=== PATIENT | female | born 1995 | race African-American/Black ===

== ENCOUNTER 2017-05-08 23:19 | Emergency (ER) | payer OTHER ==
[~2017-05-08] VITALS: Ht 177.8 cm; Wt 99.8 kg
[2017-05-09 00:07] VITALS: BP 122/68
[2017-05-09] MEDS ORDERED: ZITHROMAX250 MG PO (01:47)
== END 2017-05-09 02:18 | disposition home or self-care (01) ==
LOC: ED 23:19
DX: J02.8 Acute pharyngitis due to other specified organisms (principal); B96.89 Other specified bacterial agents as the cause of diseases classified elsewhere; F17.200 Nicotine dependence, unspecified, uncomplicated

== ENCOUNTER 2019-04-06 11:43 | Emergency (ER) | payer BC ==
[~2019-04-06] VITALS: Ht 172.7 cm; Wt 136.1 kg
[~2019-04-06 11:43] MED LIST: ZITHROMAX250 MG PO
[2019-04-06 11:48] VITALS: BP 141/50
[2019-04-06 12:01] LABS: BILIRUBIN NEGATIVE (NEGATIVE); BLOOD NEGATIVE (NEGATIVE); CLARITY CLEAR (CLEAR); COLOR YELLOW (YELLOW); GLUCOSE NEGATIVE (NEGATIVE); KETONE NEGATIVE (NEGATIVE); LEUKO ESTERASE NEGATIVE (NEGATIVE); NITRITE NEGATIVE (NEGATIVE); UROBILINOGEN 0.2 E.U./dl (0.2-1.0)
[2019-04-06 12:10] LABS: RBC 0-2 rbc/hpf (0-2); WBC 0-2 wbc/hpf (0-5)
[2019-04-06 13:01] LABS: BASO # 0.1 10*3/uL (0.0-0.1); BASO % 1.1 % (0.0-1.0); EOS % 0.4 % (1.0-4.0); HEMATOCRIT 38.5 % (37.0-47.0); HEMOGLOBIN 12.1 g/dl (12.0-16.0); LYMPH % 21.3 % (27.0-41.0); MEAN CELL VOLUME 89.7 fl (81.0-99.0); MEAN CORPUSCULAR HGB 28.2 pg (27.0-31.0); MEAN CORPUSCULAR HGB CONC 31.4 g/dl (33.0-37.0); MEAN PLATELET VOLUME 10.1 fl (9.6-12.3); MONO # 0.3 10*3/uL (0.1-1.0); MONO % 5.3 % (3.0-9.0); NEUT # 3.4 10*3/uL (2.3-7.9); NEUT % 71.9 % (47.0-73.0); PLATELET COUNT AUTOMATED 288 10*3/uL (130-400); RED BLOOD COUNT 4.29 10*6/uL (4.10-5.10); RED CELL DISTRI WIDTH 13.6 % (0-14.5); WHITE BLOOD COUNT 4.8 10*3/uL (4.8-10.8)
[2019-04-06 13:15] LABS: ALBUMIN 3.3 gm/dl (3.1-4.5); ALKALINE PHOSPHATASE 61 U/L (45-117); BUN 13 mg/dl (7-24); CHLORIDE 110 mmol/L (98-107); CREATININE 0.76 mg/dL (0.55-1.02); LIPASE 59 U/L (73-393); POTASSIUM 3.9 mmol/L (3.5-5.1); SGOT/AST 12 IU/L (3-35); SGPT/ALT 21 U/L (12-78); SODIUM 139 mmol/L (136-145); TOTAL PROTEIN 7.2 gm/dL (6.4-8.2)
== END 2019-04-06 13:20 | disposition home or self-care (01) ==
LOC: ED 11:43
PROVIDERS: Nurse Practitioner Family
DX: R10.9 Unspecified abdominal pain (principal)

== ENCOUNTER 2019-05-30 11:35 | Inpatient (IN) | payer BC, OTHER ==
[~2019-05-30] VITALS: Ht 175.2 cm; Wt 146.5 kg
[2019-05-30 11:39] VITALS: BP 139/71
[2019-05-30 12:10] LABS: BASO % 0.3 % (0.0-1.0); EOS # 0.1 10*3/uL (0.0-0.4); EOS % 1.1 % (1.0-4.0); HEMOGLOBIN 12.5 g/dl (12.0-16.0); LYMPH # 1.7 10*3/uL (1.3-4.4); LYMPH % 19.3 % (27.0-41.0); MEAN CELL VOLUME 87.1 fl (81.0-99.0); MEAN CORPUSCULAR HGB 27.9 pg (27.0-31.0); MEAN CORPUSCULAR HGB CONC 32.1 g/dl (33.0-37.0); MEAN PLATELET VOLUME 9.9 fl (9.6-12.3); MONO # 0.7 10*3/uL (0.1-1.0); MONO % 7.4 % (3.0-9.0); NEUT # 6.4 10*3/uL (2.3-7.9); NEUT % 71.6 % (47.0-73.0); PLATELET COUNT AUTOMATED 304 10*3/uL (130-400); RED BLOOD COUNT 4.48 10*6/uL (4.10-5.10); RED CELL DISTRI WIDTH 13.6 % (0-14.5); WHITE BLOOD COUNT 8.9 10*3/uL (4.8-10.8)
[2019-05-30 12:28] LABS: ALBUMIN 3.3 gm/dl (3.1-4.5); ALKALINE PHOSPHATASE 67 U/L (45-117); BUN 7 mg/dl (7-24); CHLORIDE 108 mmol/L (98-107); CREATININE 0.73 mg/dL (0.55-1.02); LIPASE 46 U/L (73-393); POTASSIUM 3.5 mmol/L (3.5-5.1); SGOT/AST 11 IU/L (3-35); SGPT/ALT 19 U/L (12-78); SODIUM 138 mmol/L (136-145); TOTAL PROTEIN 7.5 gm/dL (6.4-8.2)
[2019-05-30 12:50] LABS: BILIRUBIN NEGATIVE (NEGATIVE); CLARITY SL CLOUDY (CLEAR); COLOR YELLOW (YELLOW); GLUCOSE NEGATIVE (NEGATIVE); KETONE NEGATIVE (NEGATIVE); SPECIFIC GRAVITY 1.015 (1.005-1.030)
[2019-05-30 12:51] LABS: BLOOD 2+ (NEGATIVE); LEUKO ESTERASE TRACE (NEGATIVE); NITRITE NEGATIVE (NEGATIVE); PH 6.5 (5.0-9.0); UROBILINOGEN 0.2 E.U./dl (0.2-1.0)
[2019-05-30 12:57] LABS: BACTERIA 2+; MUCOUS 1+
[2019-05-30 13:23] VITALS: BP 114/62
[2019-05-30 14:13] VITALS: BP 112/60
[2019-05-30 14:30] VITALS: BP 132/64
--- NOTE | 2019-05-30 14:30 | NUR ---
Time: 0 A 24 year old FEMALE admitted to 5E under services of LUDIVINA ALEXANDER DO, Pt. arrived via bed from ER. Chief complaint: RUQ ABDOMINAL PAIN. GANESH SAMPSON
[2019-05-30 16:00] VITALS: BP 132/64
--- NOTE | 2019-05-30 19:55 | NUR ---
MEDICATED WITH PRN MORPHINE FOR C/O ABD PAIN RATED 6/10 ON A 0/10 PAIN SCALE. VISITOR AT BEDSIDE. WILL MONITOR
[2019-05-30 20:00] VITALS: BP 133/67
[2019-05-31] VITALS (10 sets, daily range): BP systolic 114–148; BP diastolic 59–80
--- NOTE | 2019-05-31 03:02 | NUR ---
MEDICATED WITH PRN MORPHINE FOR C/O ABD PAIN RATED 6/10 ON A 0/10 PAIN SCALE. WILL MONITOR
[2019-05-31 06:48] LABS: BASO % 0.4 % (0.0-1.0); EOS # 0.2 10*3/uL (0.0-0.4); EOS % 2.6 % (1.0-4.0); HEMOGLOBIN 11.1 g/dl (12.0-16.0); LYMPH # 1.7 10*3/uL (1.3-4.4); LYMPH % 22.5 % (27.0-41.0); MEAN CELL VOLUME 87.5 fl (81.0-99.0); MEAN CORPUSCULAR HGB 27.8 pg (27.0-31.0); MEAN CORPUSCULAR HGB CONC 31.7 g/dl (33.0-37.0); MONO # 0.7 10*3/uL (0.1-1.0); MONO % 8.5 % (3.0-9.0); NEUT % 65.7 % (47.0-73.0); PLATELET COUNT AUTOMATED 270 10*3/uL (130-400); RED CELL DISTRI WIDTH 13.5 % (0-14.5); WHITE BLOOD COUNT 7.6 10*3/uL (4.8-10.8)
[2019-05-31 07:20] LABS: ALBUMIN 2.8 gm/dl (3.1-4.5); ALKALINE PHOSPHATASE 83 U/L (45-117); BUN 6 mg/dl (7-24); CHLORIDE 107 mmol/L (98-107); CHOLESTEROL 108 mg/dL (<200); CREATININE 0.74 mg/dL (0.55-1.02); FREE T4 1.48 ng/dl (0.76-1.46); HDL CHOLESTEROL 42 mg/dl (40-60); LDL CHOLESTEROL 57 mg/dL (9-159); POTASSIUM 3.3 mmol/L (3.5-5.1); SGOT/AST 79 IU/L (3-35); SGPT/ALT 55 U/L (12-78); SODIUM 140 mmol/L (136-145); TOTAL PROTEIN 6.6 gm/dL (6.4-8.2); TRIGLYCERIDES 43 mg/dl (<150); VLDL CHOLESTEROL 9 mg/dL (6-40)
[2019-05-31 07:42] LABS: VITAMIN D, 25-HYDROXY 11.2 ng/mL (30-100)
--- NOTE | 2019-05-31 08:10 | NUR ---
DR. GOMEZ IN ROOM TALKING WITH PT.
--- NOTE | 2019-05-31 08:30 | NUR ---
PT RESTING IN BED WITH HOB ELEVATED. RESP-EASY AND REGULAR. IVF INFUSING WITH NO PROBLEM. C/O ABD PAIN, RATES PAIN 7 ON PAIN SCALE 0-10. MEDICATED WITH MORPHINE IV PER PRN ORDER, SEE EMAR. VISITOR AT HER SIDE. CALL LIGHT IN REACH. SEE SHIFT ASSESSMENT.
--- NOTE | 2019-05-31 08:45 | NUR ---
SURGERY ON THE FLOOR TO TAKE PT VIA BED.
--- NOTE | 2019-05-31 09:00 | NUR ---
Guest Relations Agent in to see patient. She is currently in surgery. Will follow up at a later time.
--- NOTE | 2019-05-31 13:00 | NUR ---
PT RESTING IN BED WITH VISITORS AT HER SIDE. IVF INFUSING WITH NO PROBLEM. NO C/O AT THIS TIME. 4 SITES GLUED WITH NO DRAINAGE. CALL LIGHT IN REACH.
--- NOTE | 2019-05-31 15:30 | NUR ---
Environmental Test Technician in to talk to patient. Patient states lives at home with her boyfriend. There are 14 steps in the home. Physician: no family physician [facility] Home health services: none Patient's level of ADLs: INDEPENDENT Patient has working utilities: yes DME: none Follow-up physician's appointment after d/c: will be made by the hospitalist nurse director upon discharge Does patient want to access PORTAL?: no Discharge plan discussed with patient. She lives at home with her boyfriend. She is independent in her ADLs and ambulation. Discussed home health care services and she denies any home needs at this time. When medically stable she will be discharged to home. His boyfriend or her mother will provide transportation on discharge. MÓNICA SILVA
--- NOTE | 2019-05-31 16:03 | NUR ---
PT C/O ABDOMINAL PAIN, RATES PAIN 5 ON PAIN SCALE 0-10. MEDICATED WITH MORPHINE IV PER PRN ORDER, SEE EMAR. IVF INFUSING WITH NO PROBLEM. CALL LIGHT IN REACH. SEE SHIFT ASSESSMENT.
--- NOTE | 2019-05-31 17:00 | NUR ---
RESTING IN BED WITH VISITOR AT HER SIDE. MEDICATION EFFECTIVE. CALL LIGHT IN REACH.
--- NOTE | 2019-05-31 20:03 | NUR ---
PT C/O ABD PAIN, RATES PAIN 8 ON PAIN SCALE 0-10. MEDICATED WITH MORPHINE IV PER PRN ORDER, SEE EMAR. IVF INFUSING WITH NO PROBLEM. CALL LIGHT IN REACH. VISITOR AT HER SIDE.
--- NOTE | 2019-05-31 21:00 | NUR ---
PT RESTING IN BED. RESP-EASY AND REGULAR. VISITOR AT HER SIDE. MEDICATION EFFECTIVE. PT AMBULATED TO BATHROOM AND BACK TO BED. CALL LIGHT IN REACH. IV ANTIBIOTICS INFUSING WITH NO PROBLEM.
[2019-06-01] VITALS: BP 143/81
--- NOTE | 2019-06-01 | NUR ---
PATIENT MEDICATED SLOWLY WITH 2 MG IV MORPHINE PER PRN ORDER AND PATIENT REQUEST FOR C/O ABDOMINAL PAIN. RATED PAIN A 7-8/10 WITH 10 BEING THE WORST.. REINFORCED USE OF CALL LIGHT
--- NOTE | 2019-06-01 01:57 | NUR ---
24 HR chart check completed.
[2019-06-01 06:37] LABS: BASO % 0.2 % (0.0-1.0); EOS % 0.3 % (1.0-4.0); HEMATOCRIT 31.5 % (37.0-47.0); LYMPH # 1.6 10*3/uL (1.3-4.4); LYMPH % 17.7 % (27.0-41.0); MEAN CELL VOLUME 89.2 fl (81.0-99.0); MEAN CORPUSCULAR HGB 28.3 pg (27.0-31.0); MEAN CORPUSCULAR HGB CONC 31.7 g/dl (33.0-37.0); MEAN PLATELET VOLUME 10.1 fl (9.6-12.3); MONO # 0.7 10*3/uL (0.1-1.0); MONO % 7.9 % (3.0-9.0); NEUT # 6.7 10*3/uL (2.3-7.9); NEUT % 73.6 % (47.0-73.0); PLATELET COUNT AUTOMATED 258 10*3/uL (130-400); RED BLOOD COUNT 3.53 10*6/uL (4.10-5.10); RED CELL DISTRI WIDTH 13.6 % (0-14.5); WHITE BLOOD COUNT 9.1 10*3/uL (4.8-10.8)
[2019-06-01 06:55] LABS: ALBUMIN 2.6 gm/dl (3.1-4.5); ALKALINE PHOSPHATASE 75 U/L (45-117); BUN 5 mg/dl (7-24); CHLORIDE 109 mmol/L (98-107); CREATININE 0.66 mg/dL (0.55-1.02); POTASSIUM 3.4 mmol/L (3.5-5.1); SGOT/AST 50 IU/L (3-35); SGPT/ALT 63 U/L (12-78); SODIUM 142 mmol/L (136-145); TOTAL PROTEIN 6.2 gm/dL (6.4-8.2)
[2019-06-01 08:00] VITALS: BP 120/78
--- NOTE | 2019-06-01 08:32 | NUR ---
NORCO 5/325 MG GIVEN FOR C/O PAIN TO RUQ,10/19.
--- NOTE | 2019-06-01 10:30 | NUR ---
Senior Coldfusion Developer in to see patient. No new needs or request at this time. When medically stable she will be discharged to home.
[2019-06-01 12:00] VITALS: BP 129/69
--- NOTE | 2019-06-01 13:00 | NUR ---
Nutritional Support Services Note: Pt has dx of acute cholecytitis and underwent sx. No reports of nausea/vomiting. On a regular diet consuming 100% of meals. CBW: 323# Ht: 5'9" Staff to continue to encourage good PO intakes and tolerance of diet. Will follow if needed. MONICA Valentine jewelry internship
[2019-06-01] MEDS ORDERED: VITAMIN D32000 UNI1 PO (13:26)
[2019-06-01] MEDS ORDERED: NORCO 5-325 TA1 EACH PO (13:26)
--- NOTE | 2019-06-01 14:50 | NUR ---
Discharge instructions reviewed with patient/family. Patient receptive and verbalizes understanding. Follow-up care arranged. Written instructions given to patient/family. DWAYNE RICHARDSON
--- NOTE | 2019-06-01 16:49 | NUR ---
1400 PT INSTRUCTED ON USE OF IS. PT DEMONSTRATED PROPER TECHNIQUE. PT ABLE TO ACHIEVE 100-1500 CC X 10. PT INSTRUCTED TO USE Q 1-2 HR W/A.
== END 2019-06-01 14:50 | disposition home or self-care (01) | DRG 418 ==
LOC: ED 11:35 → 5E 13:27 → EDHOLD 13:27 → 5E 14:07
PROVIDERS: Internal Medicine; Nurse Practitioner Family; Surgery; ADMIT Internal Medicine
PROC: 0FT44ZZ Resection of Gallbladder, Percutaneous Endoscopic Approach (ICD-10-PCS; principal; 2019-05-31)
DX: K80.00 Calculus of gallbladder with acute cholecystitis without obstruction (principal); Z68.41 Body mass index [BMI] 40.0-44.9, adult; E87.8 Other disorders of electrolyte and fluid balance, not elsewhere classified; R73.9 Hyperglycemia, unspecified; R82.71 Bacteriuria; K76.0 Fatty (change of) liver, not elsewhere classified; E66.01 Morbid (severe) obesity due to excess calories; Z83.3 Family history of diabetes mellitus; Z91.040 Latex allergy status; Z82.49 Family history of ischemic heart disease and other diseases of the circulatory system; Z81.3 Family history of other psychoactive substance abuse and dependence

== ENCOUNTER 2020-07-03 02:45 | Emergency (ER) | payer BC, OTHER ==
[~2020-07-03] VITALS: Ht 175.2 cm; Wt 136.1 kg
[~2020-07-03 02:45] MED LIST changes: +NORCO 5-325 TA1 EACH PO; +VITAMIN D32000 UNI1 PO
[2020-07-03 02:56] VITALS: BP 122/75
[2020-07-03 03:10] LABS: BILIRUBIN Negative (Negative); BLOOD Negative (Negative); CLARITY Cloudy (Clear); COLOR Yellow (Yellow); GLUCOSE Negative (Negative); KETONE Negative (Negative); LEUKO ESTERASE 3+ (Negative); NITRITE Negative (Negative); PH 7.5 (4.5-8.0); SPECIFIC GRAVITY 1.025 (1.001-1.030)
[2020-07-03 03:26] LABS: EPITHELIAL CELLS 31-40
[2020-07-03 03:27] LABS: BACTERIA 1+; WBC 21-30 wbc/hpf (0-5)
[2020-07-03 03:47] LABS: BASO # 0.1 10*3/uL (0.0-0.1); BASO % 0.7 % (0.0-1.0); EOS # 0.1 10*3/uL (0.0-0.4); EOS % 1.2 % (1.0-4.0); LYMPH # 1.9 10*3/uL (1.3-4.4); LYMPH % 24.4 % (27.0-41.0); MEAN CELL VOLUME 89.3 fl (81.0-99.0); MEAN CORPUSCULAR HGB 28.3 pg (27.0-31.0); MEAN CORPUSCULAR HGB CONC 31.7 g/dl (33.0-37.0); MEAN PLATELET VOLUME 9.6 fl (9.6-12.3); MONO # 0.7 10*3/uL (0.1-1.0); MONO % 8.5 % (3.0-9.0); NEUT % 64.8 % (47.0-73.0); PLATELET COUNT AUTOMATED 271 10*3/uL (130-400); RED BLOOD COUNT 3.92 10*6/uL (4.10-5.10); RED CELL DISTRI WIDTH 13.9 % (0-14.5); WHITE BLOOD COUNT 7.7 10*3/uL (4.8-10.8)
[2020-07-03 04:02] LABS: ALKALINE PHOSPHATASE 63 U/L (45-117); BUN 12 mg/dl (7-24); CHLORIDE 107 mmol/L (98-107); CREATININE 0.78 mg/dL (0.55-1.02); LIPASE 55 U/L (73-393); POTASSIUM 3.6 mmol/L (3.5-5.1); SGOT/AST 10 IU/L (3-35); SGPT/ALT 20 U/L (12-78); SODIUM 138 mmol/L (136-145); TOTAL PROTEIN 7.3 gm/dL (6.4-8.2)
[2020-07-03] MEDS ORDERED: CEPHALEXIN500 M1 PO (06:23)
== END 2020-07-03 06:34 | disposition home or self-care (01) ==
LOC: ED 02:45
PROVIDERS: Emergency Medicine
DX: N39.0 Urinary tract infection, site not specified (principal); R09.1 Pleurisy; E66.01 Morbid (severe) obesity due to excess calories; Z79.899 Other long term (current) drug therapy; Z98.890 Other specified postprocedural states

== ENCOUNTER 2023-11-09 18:05 | Emergency (ER) | payer SELFPAY ==
[~2023-11-09] VITALS: Ht 172.7 cm; Wt 136.1 kg
[~2023-11-09 18:05] MED LIST changes: +CEPHALEXIN500 M1 PO
[2023-11-09 18:19] VITALS: BP 115/71
[2023-11-09 19:29] LABS: BASO # 0.1 10*3/uL (0.0-0.1); BASO % 0.4 % (0.0-1.0); HEMATOCRIT 39.4 % (37.0-47.0); LYMPH # 1.8 10*3/uL (1.3-4.4); LYMPH % 13.2 % (27.0-41.0); MEAN CELL VOLUME 88.1 fl (81.0-99.0); MEAN CORPUSCULAR HGB 27.7 pg (27.0-31.0); MEAN CORPUSCULAR HGB CONC 31.5 g/dl (33.0-37.0); MEAN PLATELET VOLUME 9.2 fl (9.6-12.3); MONO % 7.6 % (3.0-9.0); NEUT # 10.6 10*3/uL (2.3-7.9); NEUT % 78.3 % (47.0-73.0); PLATELET COUNT AUTOMATED 263 10*3/uL (130-400); RED BLOOD COUNT 4.47 10*6/uL (4.10-5.10); RED CELL DISTRI WIDTH 14.3 % (0-14.5); WHITE BLOOD COUNT 13.5 10*3/uL (4.8-10.8)
[2023-11-09 19:29] LABS: BILIRUBIN Negative (Negative); BLOOD Negative (Negative); CLARITY Clear (Clear); COLOR Yellow (Yellow); GLUCOSE Negative (Negative); KETONE Negative (Negative); LEUKO ESTERASE Trace (Negative); NITRITE Negative (Negative); PH 6.5 (4.5-8.0); SPECIFIC GRAVITY <= 1.005 (1.001-1.030); UROBILINOGEN 0.2 E.U./dl (0.0-1.0)
[2023-11-09 19:36] LABS: EPITHELIAL CELLS 0-2
[2023-11-09 19:55] LABS: ALKALINE PHOSPHATASE 74 U/L (46-116); BUN 5 mg/dl (9-23); CHLORIDE 104 mmol/L (98-107); LIPASE 19 U/L (12-53); POTASSIUM 3.6 mmol/L (3.4-5.1); SGPT/ALT 18 U/L (5-49); TOTAL PROTEIN 7.6 gm/dL (6.0-8.0)
[2023-11-09] MEDS ORDERED: Ketorolac Tromethamine 60 MG/2 ML VIAL IM ONE (21:55)
== END 2023-11-09 22:41 | disposition home or self-care (01) ==
LOC: ED 18:05
PROVIDERS: Internal Medicine
DX: R10.31 Right lower quadrant pain (principal); E87.1 Hypo-osmolality and hyponatremia; D72.829 Elevated white blood cell count, unspecified; Z98.890 Other specified postprocedural states